=== PATIENT | female | born 1945 | race Two or more races ===

== ENCOUNTER → 2017-11-12 | Outpatient (CLI) | payer OTHER | END | disposition home or self-care (01) | LOC: LAB 15:08 | DX: N30.00 Acute cystitis without hematuria (principal) ==

== ENCOUNTER 2017-12-03 14:39 | Outpatient (CLI) | payer OTHER | END 2017-12-03 14:48 | disposition home or self-care (01) | LOC: MAMO-SONO 14:39 → RAD 14:39 | DX: Z12.31 Encounter for screening mammogram for malignant neoplasm of breast (principal); Z87.898 Personal history of other specified conditions; N60.11 Diffuse cystic mastopathy of right breast; M15.0 Primary generalized (osteo)arthritis ==

== ENCOUNTER 2017-12-15 13:54 | Outpatient (CLI) | payer OTHER | END 2017-12-15 14:17 | disposition home or self-care (01) | LOC: NUCLEAR 13:54 | DX: M81.0 Age-related osteoporosis without current pathological fracture (principal) ==

== ENCOUNTER → 2019-01-25 | Outpatient (CLI) | payer OTHER | END | disposition home or self-care (01) | LOC: MAMO-SONO 14:00 | DX: N60.11 Diffuse cystic mastopathy of right breast (principal); Z12.31 Encounter for screening mammogram for malignant neoplasm of breast; Z87.898 Personal history of other specified conditions ==

== ENCOUNTER 2021-05-30 14:41 | Outpatient (CLI) | payer OTHER | END 2021-05-30 14:52 | disposition home or self-care (01) | LOC: MAMO-SONO 14:41 | PROVIDERS: ATTEND Obstetrics & Gynecology | DX: N60.11 Diffuse cystic mastopathy of right breast (principal); N60.12 Diffuse cystic mastopathy of left breast; Z12.31 Encounter for screening mammogram for malignant neoplasm of breast; Z80.8 Family history of malignant neoplasm of other organs or systems ==

== ENCOUNTER 2024-07-01 14:07 | Outpatient (CLI) | payer OTHER | END 2024-07-01 14:18 | disposition home or self-care (01) | LOC: MAMO-SONO 14:07 | PROVIDERS: ATTEND Obstetrics & Gynecology | DX: N60.11 Diffuse cystic mastopathy of right breast (principal); Z12.31 Encounter for screening mammogram for malignant neoplasm of breast ==

== ENCOUNTER 2024-07-14 10:53 | Outpatient (CLI) | payer OTHER | END 2024-07-14 10:56 | disposition home or self-care (01) | LOC: SONOGRAMA 10:53 | PROVIDERS: ATTEND Pathology Anatomic Pathology & Clinical Pathology | DX: C50.912 Malignant neoplasm of unspecified site of left female breast (principal); N60.11 Diffuse cystic mastopathy of right breast ==

== ENCOUNTER 2024-09-23 06:14 | Day surgery (SDC) | payer OTHER ==
[2024-09-21 11:59] VITALS: BP 158/83
[~2024-09-23] VITALS: Ht 162.6 cm; Wt 63.5 kg
[~2024-09-23 06:14] MED LIST: SYNTHROID100 MCG PO; TRANDOLAPRIL4 MG PO; VERELAN PM100 MG
[2024-09-23] MEDS ORDERED: CEFAZOLIN SODIUM 1,000 MG VIAL ONE ×2 (10:29→11:14)
[2024-09-23] MEDS ORDERED: POVIDONE-IODINE 118 ML BOTT TOP ONE (11:14)
[2024-09-23] MEDS ORDERED: MORPHINE SULFATE 4 MG/ML VIAL IV ONE ×2 (15:15→15:45)
[2024-09-23] MEDS ORDERED: ENALAPRILAT DIHYDRATE 1.25 MG/ML VIAL IV ONE ×2 (15:45→15:50)
== END 2024-09-23 18:00 | disposition home or self-care (01) ==
LOC: CIR.AMB 06:14
PROVIDERS: ATTEND Surgery
DX: C50.411 Malignant neoplasm of upper-outer quadrant of right female breast (principal); C50.812 Malignant neoplasm of overlapping sites of left female breast; N65.1 Disproportion of reconstructed breast; R59.0 Localized enlarged lymph nodes; I10 Essential (primary) hypertension; E03.8 Other specified hypothyroidism; Z96.1 Presence of intraocular lens

== ENCOUNTER 2024-11-28 10:38 | Outpatient (CLI) | payer OTHER | END 2024-11-28 10:40 | disposition home or self-care (01) | LOC: NUCLEAR 10:38 | PROVIDERS: ATTEND Internal Medicine | DX: M81.8 Other osteoporosis without current pathological fracture (principal); M81.0 Age-related osteoporosis without current pathological fracture; C50.811 Malignant neoplasm of overlapping sites of right female breast ==